=== PATIENT | male | born 2005 | race American Indian/Alaskan Native ===

== ENCOUNTER 2025-01-29 13:43 | Emergency (ER) | payer MEDICAID ==
[~2025-01-29] VITALS: Ht 172.7 cm; Wt 70.0 kg
[2025-01-29 13:53] VITALS: O2SAT 100
[2025-01-29] MEDS ORDERED: CEFTRIAXONE 1GM/50ML 50 ML IV ONE (14:15)
[2025-01-29 15:00] LABS: CLARITY URINE CLEAR (CLEAR); COLOR URINE YELLOW (YELLOW); GLUCOSE URINE NEGATIVE (NEGATIVE); KETONES URINE NEGATIVE (NEGATIVE); LEUKOCYTE ESTERASE URINE NEGATIVE (NEGATIVE); NITRITE URINE NEGATIVE (NEGATIVE); OCCULT BLOOD URINE NEGATIVE (NEGATIVE); PH URINE 8.5 (4.5-8.0); PROTEIN URINE NEGATIVE (NEGATIVE); SPECIFIC GRAVITY URINE 1.014 (1.005-1.030); UROBILINOGEN URINE 0.2 E.U./dL (0.2-1.0)
[2025-01-29] MEDS ORDERED: DOXY100T2 MT (15:08)
[2025-01-29] MEDS: CEFTRIAXONE SODIUM 500MG VIAL IM SCH (15:20)
[2025-01-29] MEDS: DOXYCYCLINE HYCLATE 100MG CAPSULE PO ONE (15:20)
[2025-01-29 15:33] VITALS: BP 109/71; PULSE 58; RESP 18; TEMP 37.1; O2SAT 100
[2025-02-01 04:07] LABS: CHLAMYDIA TRACHOMATIS NAA Positive (Negative); NEISSERIA GONORRHOEAE NAA Negative (Negative)
== END 2025-01-29 15:47 | disposition home or self-care (01) ==
LOC: ER 13:43
DX: A64 Unspecified sexually transmitted disease (principal)
CPT/HCPCS: 99283; 87491; 87591; 81003; 96372; J0696